=== PATIENT | female | born 1955 | race Caucasian/White ===

== ENCOUNTER → 2019-04-29 12:26 | Outpatient (CLI) | payer OTHER, SELFPAY ==
--- NOTE | ~2019-04-29 | MM_ITS ---
EXAMINATION: MM screening cristobal BI w cece HISTORY: Screening mammogram TECHNIQUE: Craniocaudal and mediolateral oblique 3-D tomosynthesis images were obtained and synthetic 2-D images were generated. CAD analysis was submitted and interpreted. COMPARISON: 12/22/2017, 11/25/2016 bilateral digital screening mammogram examinations BREAST PARENCHYMAL COMPOSITION: There are scattered areas of fibroglandular density. FINDINGS: There is a biopsy marker on the left; history of prior benign left breast biopsy. Stable mi ld fibroglandular asymmetry. There is no evidence of suspicious mass, calcification, or architectural distortion to suggest malignancy in either breast. There has been no suspicious interval change. IMPRESSION: 1. No mammographic evidence of malignancy. 2. Recommend routine screening mammography in one year. BI-RADS Category 2: Benign finding(s). Reviewed, dictated and finalized at location A. LIBRARIAN
== END ==
PROVIDERS: Visit Provider Obstetrics & Gynecology
DX: Z12.31 Encounter for screening mammogram for malignant neoplasm of breast (principal)
CPT/HCPCS: 77063; 77067

== ENCOUNTER → 2020-11-28 13:08 | Outpatient (CLI) | payer MEDICARE, SELFPAY ==
--- NOTE | ~2020-11-28 | MM_ITS ---
EXAMINATION: MM screening cristobal BI w cece HISTORY: Screening TECHNIQUE: Craniocaudal and mediolateral oblique 3-D tomosynthesis images were obtained and synthetic 2-D images were generated. CAD analysis was submitted and interpreted. COMPARISON: Comparison to multiple prior studies sequentially, with oldest reviewed study dated 05/18. BREAST PARENCHYMAL COMPOSITION: There are scattered areas of fibroglandular density. FINDINGS: There is no evidence of suspicious mass, calcification, or architectural distortion to sugg est malignancy in either breast. There has been no suspicious interval change. IMPRESSION: 1. No mammographic evidence of malignancy. 2. Recommend routine screening mammography in one year. BI-RADS Category 1: Negative Reviewed, dictated and finalized at location A.
== END ==
PROVIDERS: Visit Provider Obstetrics & Gynecology
DX: Z12.31 Encounter for screening mammogram for malignant neoplasm of breast (principal)
CPT/HCPCS: 77063; 77067

== ENCOUNTER → 2022-05-29 10:57 | Outpatient (CLI) | payer MEDICARE, SELFPAY ==
--- NOTE | ~2022-05-29 | MM_ITS ---
EXAMINATION: MM screening cristobal BI w cece HISTORY: Screening mammogram TECHNIQUE: Craniocaudal and mediolateral oblique 3-D tomosynthesis images were obtained and synthetic 2-D images were generated. CAD analysis was submitted and interpreted. COMPARISON: 11/28/2020, 04/29/2019, 12/22/2017 bilateral screening mammogram examinations BREAST PARENCHYMAL COMPOSITION: There are scattered areas of fibroglandular density. FINDINGS: Focal asymmetry is noted in the upper anterior right breast on MLO view. Lobular approximately 9.3 mm mass is noted posteriorly in the upper left breast on MLO view. Bilateral diagnostic mammography is recommended, with ultrasound if required. IMPRESSION: 1. Bilateral mammographic asymmetries 2. Bilateral diagnostic mammography is recommended, with ultrasound if required BI-RADS Category 0: Incomplete: Needs additional imaging evaluation. Reviewed, dictated and finalized at location A. GAME DESIGNER
== END ==
PROVIDERS: Visit Provider Obstetrics & Gynecology
DX: Z12.31 Encounter for screening mammogram for malignant neoplasm of breast (principal); R92.8 Other abnormal and inconclusive findings on diagnostic imaging of breast
CPT/HCPCS: 77063; 77067

== ENCOUNTER → 2022-06-02 11:58 | Outpatient (CLI) | payer MEDICARE, SELFPAY ==
--- NOTE | ~2022-06-02 | DEXA_ITS ---
Bone Density Report Name: GEORGIE BURGER Age: 66 Sex: Female Ethnicity: White Date of : 1955 Indication: postmenopausal osteoporosis; parental hip fracture; height loss; Referring Provider: CARLOS COLEMAN Study: Bone densitometry was performed. Exam Date: June 02, 2022 Accession number: [id number] Bone Density: Region BMD T-score Z-score Classification AP Spine (L1-L4) 0.800 -2.2 -0.3 Osteopenia Femoral Neck (Left) 0.706 -1.3 0.3 Osteopenia Total Hip (Left) 0.724 -1.8 -0.5 Osteopenia Femoral Neck (Right) 0.643 -1.9 -0.2 Osteopenia Total Hip (Right) 0.742 -1.6 -0.3 Osteopenia Total Hip Mean 0.733 -1.7 -0.4 Osteopenia World Health Organization criteria for BMD impression classify patients as: Normal (T-score at or above -1.0), Osteopenia (T-score between -1.0 and -2.5), or Osteoporosis (T-score at or below -2.5). 10-year Fracture Risk(1): Major Osteoporotic Fracture 17% Hip Fracture 2.1% Reported Risk Factors: [place] (), Neck BMD=0.643, BMI=22.0, parental fracture (1) FRAX(R) Version 3.08. Fracture probability calculated for an untreated patient. Fracture probability may be lower if the patient has received treatment. Previous Exams: Region Exam Age BMD T-score BMD Change BMD Change Date g/cm2 vs Baseline vs Previous AP Spine(L1-L4) 06/02/2022 66 0.800 -2.2 -0.061* 0.028* 09/22/2017 62 0.772 -2.5 -0.088* -0.016 12/13/2013 58 0.788 -2.4 -0.073* -0.011 09/16/2011 56 0.799 -2.3 -0.061* -0.028* 09/10/2009 54 0.827 -2.0 -0.033* -0.062* 06/30/2007 52 0.889 -1.4 0.029* 0.029* 05/22/2006 50 0.861 -1.7 Total Hip(Left) 06/02/2022 66 0.724 -1.8 -0.071* 0.002 09/22/2017 62 0.722 -1.8 -0.073* -0.013 12/13/2013 58 0.735 -1.7 -0.060* -0.037* 09/16/2011 56 0.772 -1.4 -0.023 -0.012 09/10/2009 54 0.784 -1.3 -0.011 0.009 06/30/2007 52 0.775 -1.4 -0.020 -0.020 05/22/2006 50 0.795 -1.2 Total Hip(Right) 06/02/2022 66 0.742 -1.6 -0.094* -0.021 09/22/2017 62 0.763 -1.5 -0.073* -0.023 12/13/2013 58 0.786 -1.3 -0.050* -0.041* 09/16/2011 56 0.826 -0.9 -0.009 -0.003 09/10/2009 54 0.829 -0.9 -0.006 0.011 06/30/2007 52 0.818 -1.0 -0.018 -0.018 05/22/2006 50 0.836 -0.9
== END ==
DX: N95.9 Unspecified menopausal and perimenopausal disorder (principal); M85.88 Other specified disorders of bone density and structure, other site; M85.852 Other specified disorders of bone density and structure, left thigh; M85.851 Other specified disorders of bone density and structure, right thigh
CPT/HCPCS: 77080

== ENCOUNTER → 2022-06-20 08:54 | Outpatient (CLI) | payer MEDICARE, SELFPAY ==
--- NOTE | ~2022-06-20 | MMUS_ITS ---
EXAMINATION: MM diagnostic cristobal BI w cece, US breast BI limited HISTORY: Follow-up bilateral breast asymmetries TECHNIQUE: Additional 3-D tomosynthesis images of the breasts were performed and synthetic 2-D images were generated. CAD analysis was submitted and interpreted. High resolution limited bilateral breast ultrasound was performed. COMPARISON: Comparison to multiple prior studies sequentially, with oldest reviewed study dated 11/25. BREAST PARENCHYMAL COMPOSITION: Breast composed of scattered areas of fibroglandular density FINDINGS: MAMMOGRAPHIC FINDINGS: Right breast asymmetry is less apparent with spot compression views, likely superimposed fibroglandul ar tissue. There is a lymph node overlying the left pectoralis muscle with central lucency and circum scribed margins. ULTRASOUND: Limited right breast ultrasound: At 10:00, 6 cm from the nipple, there is a 7 mm intramammary lymph n ode with normal fatty hilum. At 11:00, 8 cm from the nipple, there is 7 mm intramammary lymph node. Limited left breast ultrasound: At 2:00, 8 cm from the nipple, there is a normal-appearing 12 mm lymp h node likely corresponding to the mammographic abnormality. IMPRESSION: 1. No evidence for malignancy in either breast. Benign findings. 2. Routine yearly screening mammogram and regular clinical breast examination are recommended. BI-RADS Category 2: Benign finding(s). Reviewed, dictated and finalized at location A. IMPRESSION: 1. No evidence for malignancy in either breast. Benign findings. 2. Routine yearly screening mammogram and regular clinical breast examination a re recommended. BI-RADS Category 2: Benign finding(s).
== END ==
PROVIDERS: Visit Provider Obstetrics & Gynecology
DX: R92.8 Other abnormal and inconclusive findings on diagnostic imaging of breast (principal)
CPT/HCPCS: 76642; 77062; 77066; G0279

== ENCOUNTER 2023-08-13 10:03 | Outpatient (CLI) | payer MEDICARE, SELFPAY ==
--- NOTE | ~2023-08-13 | MM_ITS ---
EXAMINATION: MM screening cristobal BI w cece HISTORY: Screening mammogram TECHNIQUE: Craniocaudal and mediolateral oblique 3-D tomosynthesis images were obtained and synthetic 2-D images were generated. Bilateral rotated lateral CC views. CAD analysis was submitted and interp reted. COMPARISON: 06/20/2022 diagnostic bilateral mammogram and limited bilateral breast ultrasound examinat ion 05/29/2022, 11/28/2020 bilateral screening mammogram examinations BREAST PARENCHYMAL COMPOSITION: There are scattered areas of fibroglandular density. FINDINGS: There is a biopsy marker in the left; history of prior benign left breast biopsy. Bilateral stable benign-appearing intramammary lymph nodes. There is no evidence of suspicious mass, calcification, or architectural distortion to suggest malig jennifer in either breast. There has been no suspicious interval change. IMPRESSION: 1. No mammographic evidence of malignancy. 2. Recommend routine screening mammography in one year. BI-RADS Category 2: Benign finding(s). Reviewed, dictated and finalized at location B.
== END 2023-08-13 10:04 ==
PROVIDERS: Visit Provider Obstetrics & Gynecology
DX: Z12.31 Encounter for screening mammogram for malignant neoplasm of breast (principal)
CPT/HCPCS: 77063; 77067

== ENCOUNTER 2024-02-17 11:30 | Emergency (ER) | payer MEDICARE, SELFPAY ==
--- NOTE | 2024-02-17 11:35 | ED_ITS ---
HPI - URI/Sore Throat General Chief Complaint: Upper Respiratory Infection Stated Complaint: SOB/COUGH Time Seen by Provider: 02/17/24 11:35 Source: patient Mode of arrival: ambulatory Limitations: no limitations History of Present Illness HPI Narrative: Patient is a 68-year-old female that presents with 4 days of cough and congestion. Patient has been taking [id number] medicine. Patient states her cough has improved today. Denies any fever, chills, nausea, vomiting, diarrhea. Reports granddaughter had pneumonia 2 weeks ago. Related Data Home Medications Medication Instructions Recorded Confirmed atorvastatin 10 mg tablet 10 mg PO DAILY 02/11/22 02/17/24 mirabegron 50 mg tablet,extended 50 mg PO DAILY 02/11/22 02/17/24 release 24 hr (Myrbetriq) nortriptyline 50 mg capsule 50 mg PO DAILY 02/11/22 02/17/24 omeprazole 20 mg capsule,delayed 20 mg PO DAILY 02/11/22 02/17/24 release Allergies Allergy/AdvReac Type Severity Reaction Status Date / Time Penicillins Allergy Unknown Hives Verified 02/17/24 10:07 Review of Systems Review of Systems: All systems reviewed & are unremarkable except as noted in HPI and below Constitutional: Constitutional: Denies body ache(s), Denies chills, Denies fatigue, Denies fever(s), Denies headache(s), Denies malaise and Denies weakness Eyes: Eyes: Denies blurry vision, Denies itchy eyes and Denies loss of vision ENT: Denies otalgia, Denies headache(s), Reports nasal congestion, Denies sinus pain and Denies sore throat Cardiovascular: Cardiovascular: Denies chest pain, Denies irregular heart rhythm and Denies dyspnea Respiratory: Respiratory: Reports cough and Denies dyspnea Gastrointestinal: Gastrointestinal: Denies abdominal pain, Denies diarrhea, Denies nausea and Denies vomiting Musculoskeletal: Musculoskeletal: Denies back pain, Denies myalgias and Denies arthralgias Integumentary/Breasts: Skin/Breast: Denies pruritus and Denies rash Neurologic: Denies headache(s), Denies loss of vision and Denies weakness Psychiatric: Psychiatric: Reports no additional psychiatric complaints Endocrine: Endocrine: Denies fatigue Allergic/Immunologic: Allergic/Immunologic: Denies itchy eyes PMFSH Past Medical History Medical History Breast asymmetry Encounter for Papanicolaou smear for cervical cancer screening High cholesterol Rotator cuff tear right shoulder Screening mammogram, encounter for Surgical History Surgical History History of breast biopsy (06/12/15) (L) breast core needle bx--normal breast tissue History of (10/28/93) primary c/s--breech History of cataract surgery History of dilation and curettage (~2001) hscope d&c--menorrhage--benign Family History Family History Father Family history of emphysema Family history of congestive heart failure Heart disease Mother Family history of malignant neoplasm of thyroid Osteoporosis Malignant tumor of pharynx Sibling Family history of heart disease in male family member before age 55 Other Family history of malignant neoplasm of breast maternal aunt Social History Social History Smoking status: Former smoker Second hand tobacco smoke exposure: No Smoking end date: 03/30/11 Alcohol intake: current Drinks per week: 2 Substance use: never Substance use type: does not use Do You Feel Safe in your Home?: Yes Lack of Transportation: No Lack of Food: Never True Current Housing: I Have Housing Concerned About Future Housing: No Difficulty Paying Gas/Electric Bills: No Difficulty Paying for Meds: No Currently Unemployed: No Education: Bachelor's Degree Difficulty w/ Childcare or Family Care: No Living arrangements: with family Additional living arrangements comments: Occupation/Education: retired Gender identity (if verbalized by the patient): Female Sexual Orientation (if Verbalized by the Patient): Straight or Heterosexual Comments At time of signature, agree with nursing past medical, surgical, social and family history. There is no relevant family history pertinent to the presenting complaint. Exam Const: General: cooperative, healthy appearing, comfortable, no acute distress and well nourished Nutritional Appearance: well nourished Orientation/consciousness: patient oriented x3 Limitations: no limitations HENMT: Head: normal to inspection, normocephalic and atraumatic Ears: hearing grossly normal bilaterally, external ears normal, TM's normal bilaterally, EAC's normal and no periauricular adenopathy Face/Nose/Sinus: Normal external nose present, Abnormal mucous membranes and turbinates present erythematous bilateral and diffuse, normal facial exam, sinuses nontender and face symmetric Face and sinus: normal facial exam, sinuses nontender and face symmetric Mouth: Yes Normal oral and palatal mucosa present, Yes lip normal, Yes tongue normal, Yes Normal salivary glands and ducts present, Yes oropharynx normal and Yes moist mucous membranes Teeth and gingiva: dentition normal Throat: posterior oropharynx normal, tonsils normal and uvula midline Eyes: General: appearance normal, both eyes and all related structures Alignment and Position: alignment normal and position normal Periorbital: periorbital findings normal Eyelids: eyelids normal Pupils: Equal, round and reactive pupils present Neck: Neck: normal visual inspection, full ROM, no lymphadenopathy and supple Chest: Chest palpation & inspection: normal inspection of the chest and normal palpation of entire chest wall Resp: Effort & Inspection: normal respiratory effort and able to speak in complete sentences Auscultation: clear to auscultation bilaterally, no crackles, no rales, no rhonchi and no wheezes Cardio: Rate: regular rate Rhythm: regular rhythm Heart sounds: S1 normal heart sound present and S2 normal heart sound present GI: Inspection: normal to inspection Skin: General skin exam: normal color and no rashes or lesions noted Neuro: General: patient oriented x3 and moves all extremities Cranial nerves: Yes Equal, round and reactive pupils present Speech: normal speech Gait exam (Neuro): Normal gait present Extrem: General: normal to inspection, full ROM and no edema Psych: Appearance: grossly normal and well kempt Mental Status: mental status grossly normal Speech and movement: Normal speech and movement present Affect: normal affect Attitude: cooperative Thought process: Normal thought process present Course Course Emergency Course: Patient is aware of diagnosis, understands and agrees to treatment plan. Anticipatory guidance given. Patient agrees to follow-up as directed and is aware of reasons to seek care at the emergency department. Portions of this record may have been created with voice recognition software Level of Care: Express Care Visit Vital Signs Vital signs: Reviewed MDM - URI/Sore Throat MDM Narrative Medical decision making narrative: Discharge instructions reviewed with patient, as well as provided in writing per nursing staff. The instructions also include specific and strict return/GO TO THE ER as well as f/u information. All questions have been answered, and the patient deny any further questions with discharge and discharge plan. Differential diagnosis considered: Casey virus, strep pharyngitis, allergic rhinitis, upper respiratory tract infection, sinusitis, rhinosinusitis, nasopharyngitis. viral pharyngitis, otitis media, otitis externa, otitis effusion, foreign body, cerumen impaction, viral syndrome, and influenza.? Exam findings show no acute concerns or changes; patient is non-toxic appearing and is in no distress.? Patient is appropriate for outpatient treatment and follow- up.? Medical Records Attestation: I reviewed the patient's medical records. Discharge Plan Discharge Clinical Impression: Bronchitis Patient Disposition: Home, Self-Care Condition: Stable Instructions: Acute Bronchitis (ED) Additional Instructions: Use Tessalon Perles as needed for cough. Use inhaler with spacer as needed. Other symptomatic treatments include: -Alternate Tylenol and Motrin per package directions for fever or pain. -Antihistamine medication such as Benadryl at night and Zyrtec/Claritin/Zaria during the day can help improve symptoms. -Use Flonase twice a day for 5 days then daily to help reduce the inflammation and dry up your sinuses. -You can also use Sudafed or Mucinex. Be sure to drink plenty of water with these medications at least 8 ounces with every dose and it is important to drink 8 to 10 glasses of water per day. Water is a natural decongestant -Eat and drink things that are easy to swallow, like tea or soup, or popsicles. -Oral rinses such as: Salt water gargles and/or may use topical anesthetic (eg. Chloraseptic spray) or lozenges to relieve dryness or throat pain). -Frequent hand washing or hand boring mill set up operator is one of the best ways to prevent spread of infection. -Using a vaporizer or humidifier at night will also help thin secretions and help with coughing up phlegm. -Follow up with primary care provider in 3-5 days if condition is not improving - For new or worsening symptoms go directly to the nearest ER Your blood pressure was elevated above 120/80 today at Urgent Care. This puts you above the threshold for follow up visit with a primary care provider. High blood pressure does not usually cause any symptoms, however it may lead to kidney failure, stroke, heart disease just to name a few if untreated . Many people are anxious when seeing a provider or nurse. As a result, you are not diagnosed with hypertension at this time unless your blood pressure is persistently high at two office visits at least one week apart. Some things that can help lower blood pressure are lifestyle modifications, such as light exercise, decreased salt in diet, and weight loss. It is important to follow up with a PCP about this within 1 week. Prescriptions: New benzonatate 100 mg capsule 100 mg PO BID PRN (Reason: cough) Qty: 14 0RF albuterol sulfate 90 mcg/actuation HFA aerosol inhaler 2 puff inhalation QID PRN (Reason: shortness of breath or wheezing) Qty: 6.7 0RF (DME) Aerochamber MV Spacer See Rx Instructions .Route Qty: 1 0RF Rx Instructions: As directed loratadine 10 mg tablet 10 mg PO DAILY Qty: 30 0RF No Action Myrbetriq 50 mg tablet extended release 24 hr 50 mg PO DAILY nortriptyline 50 mg capsule 50 mg PO DAILY atorvastatin 10 mg tablet 10 mg PO DAILY omeprazole 20 mg capsule,delayed release(DR/EC) 20 mg PO DAILY clobetasol 0.05 % ointment 1 applic topical BID Qty: 45 1RF estradiol 0.01 % (0.1 mg/gram) cream 1 g vaginal 2XW Qty: 42.5 1RF Follow-up/Referrals: UNKNOWN,DOCTOR [Non-Staff] - Stand Alone Forms: Work/School Release IP Time of Disposition: 12:05
[2024-02-17 11:57] VITALS: BP 124/96; PULSE 90; RESP 16; TEMP 36.4; O2SAT 96
[2024-02-17 12:00] VITALS: BP 124/96; PULSE 90; RESP 16; TEMP 36.4; O2SAT 96
== END 2024-02-17 12:07 | disposition home or self-care (01) ==
PROVIDERS: Emergency Provider Nurse Practitioner Family
DX: J40 Bronchitis, not specified as acute or chronic (principal); Z87.891 Personal history of nicotine dependence; E78.00 Pure hypercholesterolemia, unspecified
CPT/HCPCS: 99213; G0463

== ENCOUNTER 2025-01-18 15:23 | Outpatient (CLI) | payer MEDICARE, SELFPAY ==
--- NOTE | ~2025-01-18 | MM_ITS ---
EXAMINATION: MM screening cristobal BI w cece HISTORY: Screening TECHNIQUE: Craniocaudal and mediolateral oblique 3-D tomosynthesis images were obtained and synthetic 2-D images were generated. CAD analysis was submitted and interpreted. COMPARISON: Comparison to multiple prior studies sequentially, with oldest reviewed study dated , 12/22/2017 BREAST PARENCHYMAL COMPOSITION: There are scattered areas of fibroglandular density. FINDINGS: There is no evidence of suspicious mass, calcification, or architectural distortion to suggest malignancy in either breast. IMPRESSION: 1. No mammographic evidence of malignancy. 2. Recommend routine screening mammography in one year. BI-RADS Category 1: Negative Reviewed, dictated and finalized at location B.
== END 2025-01-18 15:24 | disposition home or self-care (01) ==
LOC: MICIMG 15:27
PROVIDERS: PCP Internal Medicine; Visit Provider Internal Medicine
DX: Z12.31 Encounter for screening mammogram for malignant neoplasm of breast (principal)
CPT/HCPCS: 77063; 77067

== ENCOUNTER 2025-01-18 15:24 | Outpatient (CLI) | payer MEDICARE, SELFPAY ==
--- NOTE | ~2025-01-18 | DEXA_ITS ---
Bone Density Report Name: GEORGIE BURGER Age: 69 Sex: Female Ethnicity: White Date of : 1955 Indication: osteopenia; height loss; Referring Provider: Bryn Cassidy Study: Bone densitometry was performed. Exam Date: January 18, 2025 Accession number: [id number] Bone Density: Region BMD T-score Z-score Classification AP Spine(L1-L4) 0.781 -2.4 -0.3 Osteopenia Femoral Neck (Left) 0.777 -0.7 1.1 Normal Total Hip (Left) 0.682 -2.1 -0.7 Osteopenia Femoral Neck (Right) 0.652 -1.8 0.0 Osteopenia Total Hip (Right) 0.697 -2.0 -0.5 Osteopenia Total Hip Mean 0.690 -2.1 -0.6 Osteopenia World Health Organization criteria for BMD impression classify patients as: Normal (T-score at or above -1.0), Osteopenia (T-score between -1.0 and -2.5), or Osteoporosis (T-score at or below -2.5). 10-year Fracture Risk(1): Major Osteoporotic Fracture 10% Hip Fracture 1.7% Reported Risk Factors: [place] (), Neck BMD=0.652, BMI=23.4 (1) FRAX(R) Version 3.08. Fracture probability calculated for an untreated patient. Fracture probability may be lower if the patient has received treatment. Previous Exams: -- Region Exam Age BMD T-score BMD Change BMD Change Date g/cm2 vs Baseline vs Previous -- AP Spine (L1-L4) 01/18/2025 69 0.781 -2.4 -9.2%* -2.4% 06/02/2022 66 0.800 -2.2 -7.0%* 3.6%* 09/22/2017 62 0.772 -2.5 -10.2%* -2.0% 12/13/2013 58 0.788 -2.4 -8.4%* -1.4% 09/16/2011 56 0.799 -2.3 -7.1%* -3.4%* 09/10/2009 54 0.827 -2.0 -3.9%* -7.0%* 06/30/2007 52 0.889 -1.4 3.3%* 3.3%* 05/22/2006 50 0.861 -1.7 Total Hip(Left) 01/18/2025 69 0.682 -2.1 -14.2%* -5.8%* 06/02/2022 66 0.724 -1.8 -8.9%* 0.3% 09/22/2017 62 0.722 -1.8 -9.2%* -1.8% 12/13/2013 58 0.735 -1.7 -7.5%* -4.8%* 09/16/2011 56 0.772 -1.4 -2.9% -1.5% 09/10/2009 54 0.784 -1.3 -1.4% 1.1% 06/30/2007 52 0.775 -1.4 -2.5% -2.5% 05/22/2006 50 0.795 -1.2 Total Hip(Right) 01/18/2025 69 0.697 -2.0 -16.6%* -6.1%* 06/02/2022 66 0.742 -1.6 -11.2%* -2.7% 09/22/2017 62 0.763 -1.5 -8.7%* -2.9% 12/13/2013 58 0.786 -1.3 -6.0%* -4.9%* 09/16/2011 56 0.826 -0.9 -1.1% -0.4% 09/10/2009 54 0.829 -0.9 -0.8% 1.4% 06/30/2007 52 0.818 -1.0 -2.1% -2.1% 05/22/2006 50 0.836 -0.9 -- *Denotes significance at 95% confidence level, LSC for AP Spine = 0.022 g/cm2, LSC for Total Hip = 0.027 g/cm2 Clinical Information Provided by Patient: Patient maximum height was 65 Menopause Age: 49 Drinks caffeinated beverages Onset of menses at age 13 Number of children 1 Impression: The patient has low bone mass, based on the Total Spine T-score. The patient has an estimated ten-year risk of hip fracture of 1.7% and an estimated ten-year risk of major fracture of 10%, based on the WHO FRAX algorithm. The BMD for the Total Hip(Left) decreased, changing by -5.8% since the last DXA exam. The BMD for the Total Hip(Right) decreased, changing by -6.1% since the last DXA exam. Discussion: BONE DENSITY IS LOW AT ONE OR MORE SKELETAL SITES. This patient's lowest T-score is low at one or more skeletal sites. It meets the World Health Organization's (WHO) criteria for ?low bone mass? (T-score between -1.0 and -2.5). The patient's 10-year risk of fracture as calculated by FRAX is less than the threshold where pharmacological therapy is recommended by the National Osteoporosis Foundation (NOF). However, all treatment decisions require clinical judgment and consideration of individual patient factors, including patient preferences, comorbidities, previous drug use, risk factors not captured in the FRAX model (e.g., frailty, falls, vitamin D deficiency, increased bone turnover, interval significant decline in bone density) and possible under or overestimation of fracture risk by FRAX. The patient should follow a healthful lifestyle (good nutrition with adequate calcium and vitamin D, and appropriate weight-bearing exercise). Follow-Up: Consider repeating this study in 2 years to reassess this patient's status, or sooner if there is some new clinical indication. Reported by: SWEETIE on 01/18/2025 3:53:00 PM. Reviewed, dictated and finalized at location A.
== END 2025-01-18 15:25 | disposition home or self-care (01) ==
LOC: MICIMG 15:26
PROVIDERS: PCP Internal Medicine; Visit Provider Obstetrics & Gynecology
DX: Z78.0 Asymptomatic menopausal state (principal)
CPT/HCPCS: 77080